=== PATIENT | female | born 1975 | race Caucasian/White ===

== ENCOUNTER 2018-01-26 04:45 | Emergency (ER) | payer BC ==
[~2018-01-26] VITALS: Ht 157.5 cm; Wt 86.2 kg
[2018-01-26 04:48] VITALS: BP 139/95
[2018-01-26] MEDS ORDERED: DICL50EC11 PO (04:55)
[2018-01-26] MEDS ORDERED: MULT-1993 PO (04:56)
--- NOTE | 2018-01-26 04:56 | NUR ---
Pt ambulated to bed 11 with vss.
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
--- NOTE | 2018-01-26 05:38 | NUR ---
Patient discharged with v/s stable. Written and verbal after care instructions given and explained. Patient alert, oriented and verbalized understanding of instructions. Ambulatory with steady gait. All questions addressed prior to discharge. ID band removed. Patient advised to follow up with PMD. Rx of NORCO, MOTRIN given. Patient educated on indication of medication including possible reaction and side effects. Opportunity to ask questions provided and answered.
[2018-01-26 05:39] VITALS: BP 131/89
== END 2018-01-26 05:38 | disposition home or self-care (01) ==
LOC: MED 04:45
DX: R51 Headache (principal)
CPT/HCPCS: 99283